=== PATIENT | male | born 2000 | race Two or more races ===

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

== ENCOUNTER → 2021-10-16 | Emergency (ER) | payer MEDICAID ==
[~2021-10-16] VITALS: Ht 170.2 cm; Wt 86.2 kg
[~2021-10-16] MED LIST changes: +HYDR-3980 PO; +HYDR-4275 PO; +HYDR-500 PO; +MORPHINE SULFATE INJ 2 MG/ML DISP.SYRIN IV ONE; +MORPHINE SULFATE INJ 2 MG/ML DISP.SYRIN ONE; +ONDANSETRON HCL/PF - ER 4 MG/2 ML VIAL IV ONE; +ONDANSETRON HCL/PF 4 MG/2 ML VIAL ONE; +PERM60CR4 TP; +PRED20TA PO
--- NOTE | 2021-10-16 08:20 | NUR ---
TO ER BED 6, EPIGASTRIC AREA PAIN X 2 HOURS, DENIES N/V/D, AAOX4, BREATHING EVEN AND NON LABORED, PROVIDED WARM BLANKET, AWAITING MD ORDERS
--- NOTE | 2021-10-16 08:25 | NUR ---
URINE COLLECTED AND SENT TO LAB
--- NOTE | 2021-10-16 08:30 | NUR ---
SALINE LOCK ESTABLISHED, BLOOD DRAWN, AND SENT TO LAB
[2021-10-16 08:47] LABS: BASOPHILS # (AUTO) 0.1 K/uL (0.0-0.2); BASOPHILS % (AUTO) 0.7 % (0.0-2.0); EOSINOPHILS % (AUTO) 1.8 % (0.0-6.0); HEMATOCRIT 43 % (39-51); HEMOGLOBIN 14.5 g/dL (13.5-17.5); LYMPHOCYTES # (AUTO) 2.5 K/uL (0.8-4.8); LYMPHOCYTES % (AUTO) 24.5 % (20.0-44.0); MEAN CORPUSCULAR HGB CONC 33 g/dl (31.0-36.0); MEAN CORPUSCULAR VOLUME 86 fL (80-96); MONOCYTES # (AUTO) 0.8 K/uL (0.1-1.30); MONOCYTES % (AUTO) 8.1 % (2.0-12.0); NEUTROPHILS # (AUTO) 6.6 K/uL (1.8-8.9); NEUTROPHILS % (AUTO) 64.9 % (43.0-81.0); PLATELET COUNT (AUTO) 266 K/uL (150-450); RED BLOOD CELL COUNT(AUTO) 5.03 MIL/uL (4.5-6.0); WHITE BLOOD COUNT (AUTO) 10.1 K/uL (4.3-11.0)
--- NOTE | 2021-10-16 09:00 | NUR ---
[facility] AT BEDSIDE FOR US.
[2021-10-16 09:28] LABS: CREATININE 0.8 mg/dL (0.6-1.3); POTASSIUM 5.4 mmol/L (3.5-5.1)
[2021-10-16 09:30] LABS: BILIRUBIN,URINE NEGATIVE (NEGATIVE); COLOR,URINE YELLOW (YELLOW); LEUKOCYTE ESTERASE ,URINE NEGATIVE (NEGATIVE); NITRITE, URINE NEGATIVE (NEGATIVE); PROTEIN,URINE NEGATIVE (NEGATIVE); UGLUCOSE NEGATIVE (NEGATIVE); UROBILINOGEN,URINE 0.2 EU/dL (0.2)
[2021-10-16 09:33] LABS: ALBUMIN 4.4 g/dL (3.4-5.0); BILIRUBIN,DIRECT 0.1 mg/dL (0.0-0.2); BILIRUBIN,TOTAL 0.6 mg/dL (0.2-1.0); TOTAL PROTEIN, SERUM 8.1 g/dL (6.4-8.2)
[2021-10-16 09:55] VITALS: BP 125/80
== END | disposition home or self-care (01) ==
LOC: ER 08:15
DX: K80.20 Calculus of gallbladder without cholecystitis without obstruction (principal); Z79.899 Other long term (current) drug therapy
CPT/HCPCS: 99284; 96374; 76705; 96375; 85025; 80048; 83690; 80076; 81003; 36415; J2405 ×2; J2270

== ENCOUNTER 2023-01-11 23:30 | Emergency (ER) | payer MEDICAID ==
[~2023-01-11] VITALS: Ht 170.2 cm; Wt 86.2 kg
[~2023-01-11 23:30] MED LIST changes: -MORPHINE SULFATE INJ 2 MG/ML DISP.SYRIN IV ONE; -MORPHINE SULFATE INJ 2 MG/ML DISP.SYRIN ONE; -ONDANSETRON HCL/PF - ER 4 MG/2 ML VIAL IV ONE; -ONDANSETRON HCL/PF 4 MG/2 ML VIAL ONE
[2023-01-11 23:45] VITALS: BP 118/70; TEMP 98.2; O2SAT 99
[2023-01-11] MEDS ORDERED: PERM60CR4 TP (23:57)
[2023-01-12] MEDS ORDERED: PERM60CR4 TP ×2 (00:04→22:56)
[2023-01-12] MEDS ORDERED: PRED20TA PO (22:56)
[2023-01-12] MEDS ORDERED: HYDR-500 PO (22:56)
== END 2023-01-12 00:11 | disposition home or self-care (01) ==
LOC: ER 23:31
DX: B86 Scabies (principal); Z90.89 Acquired absence of other organs; Z90.49 Acquired absence of other specified parts of digestive tract

== ENCOUNTER 2023-01-12 21:23 | Emergency (ER) | payer MEDICAID ==
[~2023-01-12] VITALS: Ht 167.6 cm; Wt 86.2 kg
[2023-01-12 22:17] VITALS: BP 121/73; TEMP 98.2; O2SAT 99
[2023-01-12] MEDS ORDERED: hydrOXYzine 10 MG TABLET ONE ×2 (22:46→22:49)
[2023-01-12] MEDS ORDERED: predniSONE 20 MG TABLET ONE (22:53)
[2023-01-12] MEDS ORDERED: HYDR-500 PO (22:56)
[2023-01-12] MEDS ORDERED: PRED20TA PO (22:56)
[2023-01-12] MEDS ORDERED: PERM60CR4 TP (22:56)
[2023-01-12] MEDS ORDERED: predniSONE 50 MG TABLET PO ONE (23:00)
[2023-01-12] MEDS ORDERED: hydrOXYzine 10 MG TABLET PO ONE ×2 (23:00)
== END 2023-01-12 23:11 | disposition home or self-care (01) ==
LOC: ER 21:27
DX: B86 Scabies (principal); R21 Rash and other nonspecific skin eruption; Z90.89 Acquired absence of other organs; Z90.49 Acquired absence of other specified parts of digestive tract; Z79.899 Other long term (current) drug therapy
CPT/HCPCS: 99283; Q0177 ×2